=== PATIENT | male | born 1955 | race Caucasian/White ===

== ENCOUNTER → 2017-09-01 | Outpatient (CLI) | payer BC, OTHER | LOC: M LRY 15:08 | DX: R06.89 Other abnormalities of breathing (principal) | CPT/HCPCS: 71101 ==

== ENCOUNTER 2020-07-04 19:02 | Emergency (ER) | payer MEDICARE, OTHER, BC ==
[~2020-07-04] VITALS: Ht 180.3 cm; Wt 158.3 kg
[2020-07-04] MEDS ORDERED: NS 1,000 ML IV ONE (19:45)
[2020-07-04] MEDS ORDERED: ISOVUE-370 76% 100ML VIAL As Ordered ONE (19:48)
[2020-07-04 19:53] LABS: HEMATOCRIT 47.4 % (42.0-52.0); HEMOGLOBIN 15.4 g/dl (13.5-17.5); MEAN CORPUSCULAR HEMOGLOBIN 30.3 pg (27.0-33.0); MEAN CORPUSCULAR HGB CONC 32.5 g/dl (32.0-36.5); MEAN CORPUSCULAR VOLUME 93.1 fl (80.0-96.0); PLATELET COUNT, AUTOMATED 228 10^3/uL (150-450); RED BLOOD COUNT 5.09 10^6/uL (4.30-6.10); WHITE BLOOD COUNT 9.8 10^3/uL (4.0-10.0)
[2020-07-04] MEDS ORDERED: ONDANSETRON 4MG/2ML VIAL IV ONE (20:00)
[2020-07-04] MEDS ORDERED: MORPHINE 4 MG/ML 1ML VIAL/SYRINGE (J2270) IV ONE (20:00)
[2020-07-04 20:04] LABS: INR 0.93; PROTHROMBIN TIME 12.7 SECONDS (12.5-14.3)
[2020-07-04 20:05] LABS: PARTIAL THROMBOPLASTIN TIME 24.9 SECONDS (24.2-38.5)
--- NOTE | 2020-07-04 20:18 | REPVR ---
PROCEDURE INFORMATION: Exam: CT Angiography Chest With Contrast Exam date and time: 07/04/2020 8:01 PM Age: 65 years old Clinical indication: Other: Clammy; Additional info: Diaphoretic, clammy, concern dissection, valerie R flank pain TECHNIQUE: Imaging protocol: Computed tomographic angiography of the chest with intravenous contrast. 3D rendering (Not supervised by radiologist): MIP and/or 3D reconstructed images were created by the technologist. Radiation optimization: All CT scans at this facility use at least one of these dose optimization techniques: automated exposure control; mA and/or kV adjustment per patient size (includes targeted exams where dose is matched to clinical indication); or iterative reconstruction. Contrast material: [id number]; Contrast volume: 75 ml; Contrast route: INTRAVENOUS (IV); COMPARISON: CR RIBS UNILATERAL WITH PA CHEST 09/01/2017 3:19 PM FINDINGS: Pulmonary arteries: Contrast density in the pulmonary arteries not optimized for exclusion of small peripheral pulmonary emboli. No large central pulmonary emboli demonstrated. Aorta: There is mild atherosclerosis in the thoracic aorta. There is fusiform dilatation of the ascending thoracic aorta which measures 3.7 cm. maximally. There is no dissection or saccular component. Thyroid: Nodule in the posterior aspect of the lower left lobe of the thyroid gland measures 1.8 cm. Correlation with ultrasound may be indicated. Lungs: Calcified granuloma right lower and upper lobes, and left upper lobe. Lungs otherwise unremarkable. Pleural space: Unremarkable. No pneumothorax. No pleural effusion. Heart: There is severe atherosclerotic calcification of the coronary arteries. Lymph nodes: Calcified right hilar lymph nodes. Bones/joints: The spine demonstrates moderate degenerative changes. Soft tissues: Unremarkable. IMPRESSION: 1. Nodule in the posterior aspect of the lower left lobe of the thyroid gland measures 1.8 cm. Correlation with ultrasound may be indicated. 2. There is fusiform dilatation of the ascending thoracic aorta which measures 3.7 cm. maximally. There is no dissection or saccular component. 3. Contrast density in the pulmonary arteries not optimized for exclusion of small peripheral pulmonary emboli. No large central pulmonary emboli demonstrated. 4. Findings consistent with remote intrathoracic granulomatous infection. COMMENTS: Consistent with the [employer]'s Incidental Findings Committee white paper (J Am Ame Radiol 2015): In patients aged 35 years and older with an incidental thyroid nodule equal to or greater than 1.[address], MRI or extrathyroidal US, further evaluation with dedicated thyroid US is recommended for patients with normal life expectancy and without comorbidities. For smaller nodules without suspicious features, no further evaluation or follow up is recommended. Electronically signed by: Harris Linares On 07/04/2020 20:17:17 PM
--- NOTE | 2020-07-04 20:22 | REPVR ---
PROCEDURE INFORMATION: Exam: CT Angiography Abdomen and Pelvis With Contrast Exam date and time: 07/04/2020 8:01 PM Age: 65 years old Clinical indication: Other: Clammy; Abdominal pain; Flank; Other: Right; Additional info: Diaphoretic, clammy, concern dissection, valerie R flank pain TECHNIQUE: Imaging protocol: Computed tomographic angiography of the abdomen and pelvis with intravenous contrast material. 3D rendering (Not supervised by radiologist): MIP and/or 3D reconstructed images were created by the technologist. Radiation optimization: All CT scans at this facility use at least one of these dose optimization techniques: automated exposure control; mA and/or kV adjustment per patient size (includes targeted exams where dose is matched to clinical indication); or iterative reconstruction. Contrast material: [id number]; Contrast volume: 75 ml; Contrast route: INTRAVENOUS (IV); COMPARISON: No relevant prior studies available. FINDINGS: Aorta: The aortoiliac vessels demonstrate mild atherosclerotic calcification. No evidence of a dissection or aneurysm. Celiac trunk and mesenteric arteries: No occlusion or significant stenosis. Renal arteries: No occlusion or significant stenosis. Right iliac arteries: No occlusion or significant stenosis. Left iliac arteries: No occlusion or significant stenosis. Liver: There is a diffuse decrease in hepatic parenchymal density, consistent with steatosis. Gallbladder and bile ducts: Unremarkable. No calcified stones. No ductal dilation. Pancreas: Unremarkable. No mass. No ductal dilation. Spleen: Unremarkable. No splenomegaly. Adrenals: Unremarkable. No mass. Kidneys and ureters: Simple cyst right kidney measures 1.9 cm. No follow-up suggested. Nonobstructive calculi right kidney. There is a 3 mm. obstructive ureteral calculus located distal right ureter just proximal to the UV junction resulting in mild proximal hydroureteronephrosis. There is mild periureteral and perinephric stranding. No urinoma demonstrated. Considering history concomitant urosepsis to be excluded clinically. Stomach and bowel: Unremarkable. No obstruction. No mucosal thickening. Appendix: No evidence of appendicitis. Intraperitoneal space: Unremarkable. No free air. No significant fluid collection. Lymph nodes: Unremarkable. No enlarged lymph nodes. Urinary bladder: Unremarkable. No mass. Reproductive: The prostate gland demonstrates mild hyperplasia. Bones/joints: Severe central spinal stenosis L1-L2 through L4-L5 secondary to degenerative changes and congenital pedicle shortening. Soft tissues: Unremarkable. IMPRESSION: 1. There is a diffuse decrease in hepatic parenchymal density, consistent with steatosis. 2. The aortoiliac vessels demonstrate mild atherosclerotic calcification. No evidence of a dissection or aneurysm. 3. Mild prostatic hyperplasia. 4. Simple cyst right kidney measures 1.9 cm. No follow-up suggested. 5. Nonobstructive calculi right kidney. 6. There is a 3 mm. obstructive ureteral calculus located distal right ureter just proximal to the UV junction resulting in mild proximal hydroureteronephrosis. There is mild periureteral and perinephric stranding. No urinoma demonstrated. Considering history concomitant urosepsis to be excluded clinically. Electronically signed by: Harris Linares On 07/04/2020 20:22:21 PM
[2020-07-04 20:23] LABS: ALBUMIN 4.3 GM/DL (3.2-5.2); ALT/SGPT 48 U/L (12-78); BILIRUBIN,DIRECT < 0.1 MG/DL (0.0-0.2); BILIRUBIN,TOTAL 0.4 MG/DL (0.2-1.0); BLOOD UREA NITROGEN 20 MG/DL (7-18); CALCIUM LEVEL 8.9 MG/DL (8.8-10.2); CARBON DIOXIDE LEVEL 27 MEQ/L (21-32); CHLORIDE LEVEL 105 MEQ/L (98-107); CK-MB VALUE MASS 1.8 NG/ML (<3.6); CPK CREATINE PHOSPHOKINASE 152 U/L (39-308); CREATININE FOR GFR 1.74 MG/DL (0.70-1.30); GLOMERULAR FILTRATION RATE 41.9 (>49); GLUCOSE, FASTING 204 MG/DL (70-100); LIPASE 205 U/L (73-393); MB/CK RELATIVE INDEX 1.18 (< OR =4); NT-PRO BNP 30 PG/ML (<125); POTASSIUM SERUM 4.4 MEQ/L (3.5-5.1); SODIUM LEVEL 141 MEQ/L (136-145); TOTAL PROTEIN 7.6 GM/DL (6.4-8.2)
[2020-07-04 21:04] VITALS: BP 179/89
[2020-07-04] MEDS ORDERED: FLOM0.4C39 PO (21:27)
--- NOTE | 2020-07-05 07:17 | ED PDOC ---
Post-Departure Follow-Up ahsan dinero faxed formal report of cta chest for fu Anita Last MD Jul 05, 2020 07:17
--- NOTE | 2020-07-05 07:57 | ECGEPIP ---
[facility] - ED Test Date: 2020-07-04 Pat Name: DENICE CLARK Department: Room: - Gender: Male [employer]el[employer] Worker: omar : 1955 Requested By: MAYKEL Napoles PA-C Order Number: [id number] Reading MD: Les Azar Measurements Intervals [place] Rate: 69 P: 48 CT: 139 QRS: -40 QRSD: 109 T: 37 QT: 390 QTc: 420 Interpretive Statements SINUS RHYTHM LEFT AXIS DEVIATION BASELINE ARTIFACT AFFECTS INTERPRETATION NO PRIORS FOR COMPARISON Electronically Signed on 07-05-2020 7:56:47 EDT by Les Azar
== END 2020-07-04 22:10 | disposition home or self-care (01) ==
LOC: M ED 19:02
DX: N13.2 Hydronephrosis with renal and ureteral calculous obstruction (principal); N40.2 Nodular prostate without lower urinary tract symptoms; E04.1 Nontoxic single thyroid nodule; J84.10 Pulmonary fibrosis, unspecified; I77.810 Thoracic aortic ectasia; K76.89 Other specified diseases of liver; N28.1 Cyst of kidney, acquired; I10 Essential (primary) hypertension; M54.9 Dorsalgia, unspecified
CPT/HCPCS: 71275; 74174; 80047; 80048; 80076; 81001; 82553; 83690; 83880; 84439; 84443; 84484; 85027; 85610; 85730; 93005; 93041; 94760; 96361; 96374; 96375; 99284; J2270; J2405; Q9967